=== PATIENT | male | born 1965 | race Caucasian/White ===

== ENCOUNTER 2024-09-24 06:05 | Observation (INO) ==
[2024-09-24] MEDS ORDERED: IOPAMIDOL 100 ML BOTTLE IV ONE (06:06)
[2024-09-24 06:48] LABS: Basophils # (Auto) 0.02 K/mcL (0.00-0.30); Basophils % (Auto) 0.3 % (0.0-2.0); Eosinophils # (Auto) 0.05 K/mcL (0.00-0.70); Eosinophils % (Auto) 0.6 % (0.0-7.0); Hematocrit 49.3 % (40.1-51.0); Hemoglobin 16.8 g/dL (13.7-17.5); Lymphocytes # (Auto) 0.76 K/mcL (1.50-4.80); Lymphocytes % (Auto) 9.8 % (15.5-49.0); Mean Cell Volume 102.9 fL (80.0-100.0); Mean Corpuscular HGB Conc 34.1 g/dL (31.0-36.0); Monocytes % (Auto) 7.7 % (1.0-12.0); Neutrophils % (Auto) 81.3 % (38.0-78.0); Platelet Count 149 K/mcL (140-440); RBC 4.79 M/mcL (4.63-6.08); Red Cell Distribution Width 12.3 % (11.5-14.5); WBC 7.8 K/mcL (4.5-11.0)
[2024-09-24] MEDS: metroNIDAZOLE 500 MG/100 ML BAG IV ONE (08:27)
[2024-09-24] MEDS: CIPROFLOXACIN 400 MG/200 ML BAG IV ONE (08:27)
[2024-09-24] MEDS: 0.9 % SODIUM CHLORIDE 1,000 ML IV ONE (08:38)
[2024-09-24 08:50] LABS: ALT/SGPT 29 U/L (<40); AST/SGOT 28 U/L (<40); Albumin 4.1 gm/dL (3.2-5.2); Albumin/Globulin Ratio 1.7 (1.0-2.3); Alkaline Phosphatase 32 U/L (39-117); Bilirubin,Total 0.7 mg/dL (0.1-1.0); Blood Urea Nitrogen 21 mg/dL (6-20); Calcium 9.1 mg/dL (8.6-10.4); Carbon Dioxide 26 mmol/L (22-30); Chloride 93 mmol/L (96-108); Globulin 2.4 gm/dL (2.2-3.7); Glomerular Filtration Rate 73; Glucose 103 mg/dL (70-105); Potassium 4.1 mmol/L (3.3-5.1); Sodium 131 mmol/L (133-145)
[2024-09-24] MEDS ORDERED: LIDOCAINE 2% PF 5 ML VIAL ONE (10:20)
[2024-09-24] MEDS ORDERED: SUCCINYLCHOLINE 200 MG/10 ML VIAL IV ONE (10:20)
[2024-09-24] MEDS ORDERED: KETOROLAC 30 MG/ML VIAL ONE (10:20)
[2024-09-24] MEDS ORDERED: fentaNYL 100 MCG/2 ML VIAL ONE ×2 (10:20→11:04)
[2024-09-24] MEDS ORDERED: KETAMINE 50 MG/ML Syringe IV ONE (10:20)
[2024-09-24] MEDS ORDERED: ONDANSETRON 4 MG/2 ML VIAL ONE (10:20)
[2024-09-24] MEDS ORDERED: DEXAMETHASONE 10 MG/ML VIAL ONE (10:20)
[2024-09-24] MEDS ORDERED: PROPOFOL 200 MG/20 ML VIAL IV ONE ×2 (10:20→11:12)
[2024-09-24] MEDS ORDERED: GLYCOPYRROLATE 0.2 MG/ML VIAL IV ONE (10:20)
[2024-09-24] MEDS ORDERED: MIDAZOLAM 2 MG/2 ML VIAL ONE (10:23)
[2024-09-24] MEDS ORDERED: FAMOTIDINE/PF 20 MG/2 ML VIAL IV ONE (10:23)
[2024-09-24 10:42] LABS: Appearance,Urine Clear (Clear); Bilirubin,Urine Negative (Negative); Color,Urine Yellow; Glucose,Urine (UA) Negative (Negative); Ketones,Urine Negative (Negative); Leukocyte Esterase,Urine Negative /uL (Negative); Mucus,Urine Few /hpf; Nitrate,Urine Negative (Negative); PH,Urine 5.5 (5.0-9.0); Protein,Urine Negative (Negative); Urine Blood Negative ery/mcL (Negative); Urine Hyaline Cast 3 /lph (0-2); Urine RBC 0 /hpf (0-3); Urine Squamous Epithelial Cell 0 /hpf (0-4); Urine WBC 0 /hpf (0-4); Urobilinogen,Urine Normal
[2024-09-24] MEDS: BUPIVACAINE W/EPI 0.25% 50 ML VIAL IJ ONE (11:32)
[2024-09-24] MEDS ORDERED: ePHEDrine 50 MG/5 ML SYRINGE (ANEST) IV ONE (11:32)
[2024-09-24] MEDS ORDERED: FLUMAZENIL 0.1 MG/ML ML IV PRN (11:41)
[2024-09-24] MEDS ORDERED: BENZOCAINE/MENTHOL 1 LOZENGE PO PRN (11:41)
[2024-09-24] MEDS ORDERED: HYDROmorphone 0.5 MG/0.5 ML SYRINGE IV PRN (11:41)
[2024-09-24] MEDS ORDERED: fentaNYL 100 MCG/2 ML VIAL IV PRN (11:41)
[2024-09-24] MEDS ORDERED: NALOXONE HCL 0.4 MG/ML VIAL IV PRN (11:41)
[2024-09-24] MEDS ORDERED: ONDANSETRON 4 MG/2 ML VIAL IV PRN (11:41)
[2024-09-24] MEDS ORDERED: METHOCARBAMOL 1,000 MG/10 ML VIAL IV PRN (11:41)
[2024-09-24] MEDS ORDERED: IPRATROPIUM/ALBUTEROL 3 ML AMPUL.NEB NEB PRN (11:41)
[2024-09-24] MEDS ORDERED: LACTATED RINGERS 250 ML IV PRN (11:41)
[2024-09-24] MEDS: ACETAMINOPHEN 1,000 MG/100 ML BAG IV ONE (11:46)
[2024-09-24] MEDS ORDERED: ACETAMINOPHEN 500 MG TABLET PO PRN (12:11)
[2024-09-24] MEDS: LACTATED RINGERS 1,000 ML IV SCH (13:38)
[2024-09-24] MEDS: PIPERACILLIN SODIUM/TAZOBACTAM 3.375 GM in DEXTROSE 5% IN WATER 50 ML IV SCH (13:38)
[2024-09-24] MEDS: PIPERACILLIN SODIUM/TAZOBACTAM 3.375 GM in DEXTROSE 5% IN WATER 50 ML IV ONE (14:21)
[2024-09-24] MEDS: DEXTROSE 5%-NS 1,000 ML IV SCH (15:00)
[2024-09-24] MEDS: TAMSULOSIN 0.4 MG CAPSULE PO SCH (21:56)
[2024-09-24] MEDS: PIPERACILLIN SODIUM/TAZOBACTAM 3.375 GM in DEXTROSE 5% IN WATER 100 ML IV SCH (21:57)
[2024-09-25 06:01] LABS: Hematocrit 46.9 % (40.1-51.0); Hemoglobin 15.9 g/dL (13.7-17.5); Mean Cell Volume 102.6 fL (80.0-100.0); Mean Corpuscular HGB Conc 33.9 g/dL (31.0-36.0); Mean Platelet Volume 9.5 fL (8.8-12.5); Platelet Count 156 K/mcL (140-440); RBC 4.57 M/mcL (4.63-6.08); Red Cell Distribution Width 12.4 % (11.5-14.5); WBC 7.2 K/mcL (4.5-11.0)
[2024-09-25 06:34] LABS: Blood Urea Nitrogen 16 mg/dL (6-20); Calcium 8.4 mg/dL (8.6-10.4); Carbon Dioxide 24 mmol/L (22-30); Chloride 96 mmol/L (96-108); Glomerular Filtration Rate 73; Glucose 121 mg/dL (70-105); Potassium 4.2 mmol/L (3.3-5.1); Sodium 131 mmol/L (133-145)
[2024-09-25] MEDS: oxyCODONE IR 5 MG TABLET PO PRN (07:19)
[2024-09-25] MEDS: DEXTROSE 5%-NS 1,000 ML IV SCH (08:21)
[2024-09-25] MEDS: OLMESARTAN MEDOXOMIL 20 MG TABLET PO SCH (08:27)
[2024-09-25] MEDS: FUROSEMIDE 40 MG TABLET PO SCH (08:27)
[2024-09-26 14:28] VITALS: TEMP 98.1; O2SAT 98
== END 2024-09-26 14:00 | disposition home or self-care (01) ==
LOC: ED 06:05 → MEDSUR 10:20 → SSSU 10:20 → MEDSUR 12:18
PROVIDERS: ADMIT Surgery Surgical Critical Care; ATTEND Surgery Surgical Critical Care